=== PATIENT | male | born 1980 | race Caucasian/White ===

== ENCOUNTER 2018-11-06 10:00 | Emergency (ER) | payer MEDICAID ==
[~2018-11-06] VITALS: Ht 162.6 cm; Wt 84.8 kg
[2018-11-06 10:07] VITALS: BP 126/74
--- NOTE | 2018-11-06 10:10 | NUR ---
BIB SIGNIFICANT OTHER. AAOX 4. C/O RIGHT EYE PAIN SINCE WEDNESDAY MORNING, SOMETHING FLEW IN HIS EYE. PT STATES R EYE PAIN /. NO DISCHARGE NOTED. REDNESS TO R EYE. PT STATES IT WAS WINDY AND SOMETHING FLEW ONTO HIS R EYE. PT WENT TO URGENT CARE AND UNKNOWN FOREIGN MATERIAL WERE TAKEN OUT. NO PRESCRIBED MEDICATION GIVEN. AFEBRILE. PERRLA, BRISK 3 MM. HOB UP. BED SIDERAILS UP X1. ON LOW BED POSITION, LOCKED. ER MADE AWARE OF PT STATUS.
[2018-11-06] MEDS ORDERED: TETRACAINE HCL/PF 0.5% OPTH 4 ML BTL OP ONE (12:00)
--- NOTE | 2018-11-06 12:00 | NUR ---
LATE ENTRY: VERBAL ORDER RECEIVED FROM DR CHAKRABORTY FOR FLUORESCEIN STRIP TOP 0.6 MG.
--- NOTE | 2018-11-06 12:17 | NUR ---
Dr. Scherer evaluating patient at bedside.
[2018-11-06] MEDS ORDERED: FLUORESCEIN OPTH STRIP 0.6 MG ONE (12:41)
[2018-11-06] MEDS ORDERED: TOBRAMYCIN 0.3% OPTH OINT 3.5 GM TUBE OP SCH (13:25)
[2018-11-06 14:51] VITALS: BP 124/75
--- NOTE | 2018-11-06 14:51 | NUR ---
Patient discharged with v/s stable. Written and verbal after care instructions given and explained. Patient alert, oriented and verbalized understanding of instructions. Ambulatory with steady gait. All questions addressed prior to discharge. ID band removed. Patient advised to follow up with PMD. Rx of Tobrasol Ophtalmic Solution, Tylenol with Codeine #3 given. Patient educated on indication of medication including possible reaction and side effects. Opportunity to ask questions provided and answered.
[2018-11-07] MEDS ORDERED: FLUORESCEIN OPTH STRIP 0.6 MG OP ONE (19:30)
== END 2018-11-06 14:51 | disposition home or self-care (01) ==
LOC: MED 10:00
DX: T15.01XA Foreign body in cornea, right eye, initial encounter (principal); X58.XXXA Exposure to other specified factors, initial encounter; Y93.89 Activity, other specified; Y92.89 Other specified places as the place of occurrence of the external cause; Y99.8 Other external cause status
CPT/HCPCS: 99283

== ENCOUNTER 2022-06-07 08:54 | Emergency (ER) | payer SELFPAY ==
[~2022-06-07] VITALS: Ht 167.6 cm; Wt 86.2 kg
[2022-06-07 09:04] VITALS: BP 157/88
--- NOTE | 2022-06-07 09:38 | NUR ---
C/O 5/10 LEFT EYE IRRITATION, REDNESS S/P FOREIGN BODY IN LEFT EYE X YESTERDAY.
--- NOTE | 2022-06-07 10:10 | NUR ---
Keysah castano in [facility] - 06/07/22 at 1010 by ROLANDA Patient ambulated to bed 7.
--- NOTE | 2022-06-07 10:13 | NUR ---
PATIENT AMBULATED TO BED 6.
[2022-06-07] MEDS ORDERED: FLUORESCEIN OPTH STRIP 1 MG OP ONE (10:30)
[2022-06-07] MEDS ORDERED: TETRACAINE HCL/PF 0.5% OPTH 4 ML BTL OP ONE (10:30)
--- NOTE | 2022-06-07 10:45 | NUR ---
DR. BENOIT EVALUATING PATIENT AT BEDSIDE.
[2022-06-07] MEDS ORDERED: ERYT5OIN58 OP (10:50)
--- NOTE | 2022-06-07 10:53 | NUR ---
The patient's care was reviewed and supervised by Arlette Traore, RN, RN.
[2022-06-07 10:54] VITALS: BP 157/88
--- NOTE | 2022-06-07 10:54 | NUR ---
Patient discharged with v/s stable. Written and verbal after care instructions given and explained. Patient alert, oriented and verbalized understanding of instructions. Ambulatory with steady gait. All questions addressed prior to discharge. ID band removed. Patient advised to follow up with PMD. Rx of erythromycin (sent) given. Patient educated on indication of medication including possible reaction and side effects. Opportunity to ask questions provided and answered.
== END 2022-06-07 10:54 | disposition home or self-care (01) ==
LOC: MED 08:54
DX: H53.142 Visual discomfort, left eye (principal)
CPT/HCPCS: 99283